=== PATIENT | female | born 1945 | race Caucasian/White ===

== ENCOUNTER 2018-01-28 08:31 | Emergency (ER) | payer MEDICARE, OTHER ==
--- NOTE | 2018-01-28 08:48 | ED Physician Documentation ---
Lower Extremity Injury - HISTORIAN Historian: patient - HPI Chief Complaint: Lower Extremity Injury (L knee) Additional Information: Patient was helping with recreation at [facility] yesterday when she slipped and fell on her left knee. She had some immediate pain in the knee but was able to ambulate some difficulties. This AM pain was a lot worse and is not able to bear weight on the knee. Has had some mild swelling to the knee. she had mild contusion to the left elbow, no other injury noted. Onset: days ago (yesterday) Where: other ([facility]) Severity: severe Context: fall Associated Symptoms:: swelling, unable to bear weight. denies: numbness distally, snapping sensation, popping sensation Modifying Factors:: pain on movement - ROS CONST: no problems. denies: fever, chills CVS/RESP: denies: chest pain, shortness of breath MS/SKIN/LYMPH: denies: neck pain, back pain NEURO: denies: headache - PAST HX Past History: other (RA, COPD; s/p hysterectomy, appendectomy, carpa tunnel release, R mastectomy) Allergies/Adverse Reactions: Allergies Allergy/AdvReac Type Severity Reaction Status Date / Time No Known Allergies Allergy Verified 01/28/18 08:50 Home Medications: Ambulatory Orders Medication Instructions Recorded oxyCODONE HCL/ACETAMINOPHEN 1 each PO Q4 PRN #20 tablet 01/28/18 [Percocet 5/325] - SOCIAL HX Smoking History: quit greater than 1 year Alcohol Use: none Drug Use: none - FAMILY HX Family History: other (MS, Breast Cancer) - VITAL SIGNS Vital Signs: Vital Signs Temp Pulse Resp BP Pulse Ox 98.9 F 87 16 121/57 97 01/28/18 08:37 01/28/18 08:37 01/28/18 08:37 01/28/18 08:37 01/28/18 08:37 - REVIEWED ASSESSMENTS Nursing Assessment Reviewed: Yes Vitals Reviewed: Yes ED Results Lab/Radiology - Radiology Radiology Impressions: Examination: Plain film left knee History: INJURY POST FALL ON 01/27/18 (Hx) Findings: 3 views of the left knee demonstrates osteopenia. Femoral fixation carol. No disruption of the cortical margins. Joint effusion. Impression: Osteopenia and femoral fixation carol. No acute appearing cortical abnormality. Joint effusion. - Orders Orders: ED Orders Category Date Time Status KNEE 3 VIEWS [RAD] Stat Exams 01/28/18 Taken Ketorolac Tromethamine [Toradol] Med 01/28/18 08:56 Discontinued 60 mg .ROUTE .STK-MED ONE Ketorolac Tromethamine [Toradol] Med 01/28/18 08:54 Discontinued 60 mg IM NOW ONE Lower Extremities Injury Phy - Physical Exam General Appearance: alert, moderate distress Hips: bilateral hip: non-tender, normal inspection, normal range of motion, no evidence of injury Legs: bilateral: non-tender, normal inspection, normal range of motion, no evidence of injury Knees: right: non-tender, normal inspection, normal range of motion, no evidence of injury, left: bone tenderness (lateral aspect), pain (lateral and inferior knee area), soft tissue tenderness, swelling, N/A: deformity (none), ecchymosis (none) Ankle: bilateral: non-tender, normal inspection, normal range of motion, no evidence of injury Foot: bilateral foot: non-tender, normal inspection, normal range of motion, no evidence of injury Ligaments: pain on anterior drawer, pain on posterior drawer, pain on lateral stress Gait: unable to bear weight Neuro/Vascular/Tendon: no vascular compromise, motor nml, sensation nml Head/ENT: nml inspection Neck/Back: nml inspection (at baseline) Resp/CVS: chest non-tender, breath sounds nml, heart sounds nml, no resp. distress, lungs clear, reg. rate & rhythm Discharge Clincal Impression: Strain of knee and leg, left Qualifiers: Encounter type: initial encounter Qualified Code(s): S86.912A - Strain of unspecified muscle(s) and tendon(s) at lower leg level, left leg, initial encounter Referrals: Danielito Pierre MD [Primary Care Provider] - 2 Days Additional Instructions: Wear knee immobilizer for the next several days as needed for comfort measures. You may increase your percocet (oxycodone/acetominophen) to one tablet every 4 hours as needed. Keep you knee elevated with some ice over the next several days Condition: Stable Disposition: 01 HOME, SELF-CARE Decision to Admit: NO Date of Decison to Admit: 01/28/18 Decision Time: 10:14
[2018-01-28] MEDS ORDERED: KETOROLAC TROMETHAMINE 60 MG/2 ML VIAL IM ONE (08:54)
[2018-01-28] MEDS ORDERED: KETOROLAC TROMETHAMINE 60 MG/2 ML VIAL ONE (08:56)
--- NOTE | 2018-01-28 10:19 | Diagnostic Imaging Report ---
CAREN DELEON [facility] [address] [facility].[address] [address] Report Submission Date: Jan 28, 2018 9:42:24 AM CDT Patient Study Name: BEENA TOMPKINS Date: Jan 28, 2018 9:12:48 AM CDT Modality Type: DX Gender: F Description: LOWER EXTREMITY : 47 Institution: [facility] Physician: CAREN DELEON Examination: Plain film left knee History: INJURY POST FALL ON 01/27/18 (Hx) Findings: 3 views of the left knee demonstrates osteopenia. Femoral fixation carol. No disruption of the cortical margins. Joint effusion. Impression: Osteopenia and femoral fixation carol. No acute appearing cortical abnormality. Joint effusion. Electronically signed on Jan 28, 2018 9:42:24 AM CDT by: Hood FELIPE
[2018-01-28 11:01] VITALS: BP 136/63
== END 2018-01-28 10:37 | disposition home or self-care (01) ==
LOC: ED 08:31
DX: S86.912A Strain of unspecified muscle(s) and tendon(s) at lower leg level, left leg, initial encounter (principal); X58.XXXA Exposure to other specified factors, initial encounter; Y93.F9 Activity, other caregiving; Y92.128 Other place in nursing home as the place of occurrence of the external cause; Y99.0 Civilian activity done for income or pay
CPT/HCPCS: 73562; J1885; 96372; 99283

== ENCOUNTER 2018-12-09 09:39 | Outpatient (CLI) | payer OTHER ==
--- NOTE | 2018-12-09 11:31 | Diagnostic Imaging Report ---
CAREN DELEON [facility] [address] [address] Report Submission Date: Dec 09, 2018 10:09:10 AM DEBORA Patient Study Name: BEENA TOMPKINS Date: Dec 09, 2018 9:46:38 AM FUR TINTER Modality Type: DX Gender: F Description: SHOULDER 2 VIEWS OR MORE : 47 Institution: [facility] Physician: CAREN DELEON Examination: Plain film left shoulder History: LEFT SHOULDER PAIN POST FALL ON ICE 1 WEEK AGO. NO PREVIOUS INJURY OR SURGERY ON LEFT SHOULDER. Comparison exams: None provided Findings: 3 views of the left shoulder demonstrates osteopenia. No evidence for fracture or dislocation. No soft tissue abnormality Impression: Osteopenia. No acute cortical abnormality. Electronically signed on Dec 09, 2018 10:09:10 AM FUR TINTER by: Hood FELIPE
== END 2018-12-09 09:42 ==
LOC: LAB 09:39 → RAD 09:42
PROVIDERS: ATTEND Family Medicine
DX: M85.812 Other specified disorders of bone density and structure, left shoulder (principal); S40.012A Contusion of left shoulder, initial encounter; W19.XXXA Unspecified fall, initial encounter
CPT/HCPCS: 73030

== ENCOUNTER 2019-01-26 11:20 | Outpatient (CLI) | payer OTHER ==
--- NOTE | 2019-01-26 12:54 | Diagnostic Imaging Report ---
CAREN DELEON [facility] [address] [facility].[address] [address] Report Submission Date: Jan 26, 2019 12:45:30 PM CDT Patient Study Name: BEENA TOMPKINS Date: Jan 26, 2019 11:24:52 AM CDT Modality Type: DX Gender: F Description: CHEST 2VIEW : 47 Institution: [facility] Physician: CAREN DELEON Examination: PA and lateral chest. History: Evaluate lung prescott. Comparison exam: None provided. Findings: PA and lateral views of the chest demonstrates a normal cardiac and mediastinal silhouette. Chronic interstitial changes. No focal infiltrate. No blunting of the costophrenic margins. Osteopenia and articular degenerative changes. Impression: Chronic interstitial changes. No acute pulmonary process. Electronically signed on Jan 26, 2019 12:45:30 PM CDT by: Hood FELIPE
== END 2019-01-26 11:22 ==
LOC: RAD 11:20
PROVIDERS: ATTEND Family Medicine
DX: R05 Cough (principal)
CPT/HCPCS: 71046

== ENCOUNTER 2019-03-11 16:00 | Outpatient (CLI) | payer OTHER ==
[2019-03-11 17:16] LABS: BASOPHILS % 0.5 % (0.0-1.5); EOSINOPHILS % 0.7 % (0.0-6.8); MEAN CORPUSCULAR HEMOGLOBIN 25.8 pg (28.0-34.0); NEUTROPHILS # 5.7 # k/uL (1.4-7.7)
== END 2019-03-11 16:03 ==
LOC: LABRHC 16:00
PROVIDERS: ATTEND Family Medicine
DX: M10.9 Gout, unspecified (principal); M06.9 Rheumatoid arthritis, unspecified; E78.5 Hyperlipidemia, unspecified
CPT/HCPCS: 36415; 80053; 80061; 84550; 85025; 85651

== ENCOUNTER 2019-06-15 14:02 | Outpatient (CLI) | payer OTHER ==
[2019-06-15 14:53] LABS: eGFR (Non-African) > 60
[2019-06-15 15:33] LABS: SEGMENTED NEUTROPHILS % 72 % (39-79)
[2019-06-15 15:34] LABS: ANISOCYTOSIS 1+ (NEGATIVE); BASOPHILS % 1 % (0-2); HYPOCHROMASIA 1+ (NEGATIVE)
== END 2019-06-15 14:04 ==
LOC: LAB 14:02
PROVIDERS: ATTEND Family Medicine
DX: D64.9 Anemia, unspecified (principal); M06.9 Rheumatoid arthritis, unspecified
CPT/HCPCS: 80053; 82607; 82746; 83540; 85025; 85651

== ENCOUNTER 2019-09-01 09:24 | Outpatient (CLI) | payer OTHER ==
[2019-09-01 09:50] LABS: BASOPHILS % 0.2 % (0.0-1.5); NEUTROPHILS # 8.1 # k/uL (1.4-7.7)
[2019-09-01 10:00] LABS: eGFR (Non-African) > 60
--- NOTE | 2019-09-01 15:08 | Diagnostic Imaging Report ---
PATIENT MR#: [id number] PATIENT PATIENT NAME: BEENA TOMPKINS DATE OF : 1945 REFERRING PHYSICIAN: Ameena Toure EXAM DATE: 09/01/2019 ACCESSION NUMBER: [id number] EXAM DESCRIPTION: CHEST 2VIEW HISTORY: SOA, COUGH AND CONGESTION X 1 WEEK. COMPARISON: January 26, 2019. CHEST RADIOGRAPH, FRONTAL AND LATERAL: Upper mediastinum: Not widened. Heart: No cardiomegaly. Lungs: Hyperinflation of COPD. No lobar infiltrate, pulmonary edema, pneumothorax or significant effu judith. Skeleton: Diffuse osteopenia. Minimal superior endplate compression deformity of T10, stable since pr ior. IMPRESSION: COPD. No acute thoracic process. Read by: Dr. Gil Lockhart Transcribed by: Gil Lockhart Transcribed Date: 09/01/2019 3:08:03 PM Electronically signed by: Dr. Gil Lockhart Date signed: 09/01/2019 3:08:03 PM
== END 2019-09-01 09:29 ==
LOC: LAB 09:24
PROVIDERS: ATTEND Nurse Practitioner Family
DX: R06.02 Shortness of breath (principal); R05 Cough
CPT/HCPCS: 36415; 71046; 80053; 85025